=== PATIENT | male | born 1980 | race Caucasian/White ===

== ENCOUNTER 2018-09-20 03:02 | Emergency (ER) | payer OTHER, MEDICAID, SELFPAY ==
[2018-09-20 03:05] VITALS: BP 125/89; PULSE 81; RESP 15; TEMP 36.9; O2SAT 97; BMI 23.1
--- NOTE | 2018-09-20 03:13 | DI.CT.S_ITS ---
PROCEDURE: CT KIDNEY URETER BLADDER (KUB) INDICATIONS: severe Left flank pain with radiation to Left groin TECHNIQUE: Noncontrast 5 mm thick sections acquired from the diaphragms to the symphysis. 5 mm thick coronal and sagittal reformats were then performed. For radiation dose reduction, the following was used: automated exposure control, adjustment of mA and/or kV according to patient size. COMPARISON: None. FINDINGS: Image quality: Excellent. Lung bases: Lung bases are clear. Heart size is normal. Urinary system: Both kidneys are normal in size. No kidney stones. No hydronephrosis or perinephric fat stranding. Both ureters appear non-dilated throughout their expected courses. Mild thickening of the wall of the urinary bladder is present. No bladder calculi are evident. Other solid organs: Liver is normal in size. Gallbladder is not enlarged or adequately evaluated. Pancreas is normal in contours. Spleen is normal in size. No adrenal nodules. Peritoneum and bowel: Unenhanced bowel loops demonstrate normal wall thickness and caliber. No free fluid or air. The appendix is well-visualized and normal. Moderate residual stool seen within the colon. Nodes and vessels: No retroperitoneal or mesenteric adenopathy by size criteria. Aorta and inferior vena cava are normal in caliber. Abdominal wall: No ventral hernias. Pelvis: No free pelvic fluid. No inguinal hernias or adenopathy. The prostate is not enlarged. The appendix is well-visualized and normal. Bones: No suspicious bony lesions. No vertebral body compression fractures. Mild to moderate degenerative changes of the lower lumbar spine and bilateral hips are present. IMPRESSION: 1. No nephroureterolithiasis or hydronephrosis. 2. Urinary bladder wall thickening. Please correlate clinically to exclude cystitis. 3. Probable constipation. 4. Normal appendix. Note: The preliminary [facility] report and the final report are concordant. Dictated by: Laron Delarosa M.D. on 09/20/2018 at 7:30 Approved by: Laron Delarosa M.D. on 09/20/2018 at 7:39
--- NOTE | 2018-09-20 03:13 | DI.US.S_ITS ---
PROCEDURE: US SCROTUM INDICATIONS: LEFT TESTICULAR PAIN TECHNIQUE: Real-time scanning was performed of the scrotum and testicles, with image documentation. Color and pulse Doppler interrogation was performed of both testicles. COMPARISON: None. FINDINGS: Right: Testicle is normal in size at the 4.8 x 2.0 x 3.0 cm, and homogenous in echotexture. Epididymis is normal in overall size and morphology. No hydrocele or varicoceles. Overlying scrotal skin is normal in thickness. Left: Testicle is normal in size at 4.4 x 2.5 x 3.0 cm, and homogeneous in echotexture. Epididymis is normal in overall size and morphology. No hydrocele or varicoceles. Overlying scrotal skin is normal in thickness. Doppler: Color and pulse Doppler demonstrate normal and symmetric arterial flow in both testicles. IMPRESSION: Normal scrotal ultrasound. No testicular mass, hematoma, epididymal orchitis, or evidence of torsion. Note: The preliminary [facility] report and the final report are concordant. Dictated by: Laron Delarosa M.D. on 09/20/2018 at 7:39 Approved by: Laron Delarosa M.D. on 09/20/2018 at 7:41
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
[2018-09-20 04:40] VITALS: PULSE 80; RESP 15; O2SAT 99
== END 2018-09-20 04:40 | disposition home or self-care (01) ==
PROVIDERS: Emergency Provider Emergency Medicine
DX: N50.812 Left testicular pain (principal)
CPT/HCPCS: 74176; 76870; 99282; 99284

== ENCOUNTER 2019-07-16 17:04 | Emergency (ER) | payer OTHER, MEDICAID, SELFPAY ==
[2019-07-16 17:05] VITALS: BP 131/79; PULSE 80; RESP 20; TEMP 36.6; O2SAT 100
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
--- NOTE | 2019-07-16 17:25 | DI.RAD.S_ITS ---
PROCEDURE: XR ANKLE RT MIN 3V INDICATIONS: R lateral malleolus pain x 1 week TECHNIQUE: 3 views of the ankle were acquired. COMPARISON: None. FINDINGS: Bones: No fractures or dislocations. Ankle mortise is normally aligned. No suspicious bony lesions. Soft tissues: Trace tibiotalar joint effusion. Achilles tendon appears normal. Mild swelling at the lateral malleolus. IMPRESSION: No acute osseous abnormality. Dictated by: Tom Rojas M.D. on 07/16/2019 at 17:36 Approved by: Tom Rojas M.D. on 07/16/2019 at 17:37
[2019-07-16 18:19] VITALS: BP 134/74; PULSE 88; RESP 18; O2SAT 96
== END 2019-07-16 18:19 | disposition home or self-care (01) ==
PROVIDERS: Emergency Provider Nurse Practitioner
DX: S93.401A Sprain of unspecified ligament of right ankle, initial encounter (principal); W22.8XXA Striking against or struck by other objects, initial encounter
CPT/HCPCS: 73610; 99283

== ENCOUNTER 2019-10-13 00:10 | Emergency (ER) | payer OTHER, MEDICAID, SELFPAY ==
[2019-10-13 00:12] VITALS: BP 138/68; PULSE 91; RESP 20; TEMP 36.6; O2SAT 98; BMI 23.1
--- NOTE | 2019-10-13 00:17 | ED.DENTAL ---
HPI - Dental/Oral General Chief complaint: Dental/Oral Stated complaint: abscessed tooth left, needs antibiotics Time Seen by Provider: 10/13/19 00:10 Source: patient Mode of arrival: Ambulatory Limitations: no limitations History of Present Illness HPI Narrative: 39M smoker with history of multiple dental problems presents by himself with the chief complaint of dental pain and swelling. He states he has had the occasional pain in his one remaining tooth for about a year and a half but has had swelling for the past day or so. He denies fever, chills, N/V. He took some motrin without much relief. His dentist is at [facility] and he plans to go this week. He denies any injury. MD Complaint: tooth pain Teeth map: 1. Onset (ago): day(s) Duration: constant Severity: moderate Relieving factors: nothing Exacerbating factors: nothing Context: history of dental caries and poor dental care Treatment prior to arrival: none Related Data Previous Rx's Medication Instructions Recorded amoxicillin-pot clavulanate 1 tab PO BID #20 tab 10/13/19 [Augmentin] Allergies Allergy/AdvReac Type Severity Reaction Status Date / Time No Known Drug Allergies Allergy Verified 10/13/19 00:21 Review of Systems Constitutional Constitutional: Denies chills, Denies fatigue, Denies fever(s), Denies frequent falls, Denies lethargy and Denies weakness Eyes Eyes: Denies change in vision, Denies eye discharge, Denies irritation and Denies loss of vision ENT Ears, Nose, Mouth, and Throat: Denies change in voice, Reports dental pain, Denies dizziness, Denies neck pain, Denies sore throat and Denies throat swelling Comments: facial swelling Cardiovascular Cardiovascular: Denies chest pain, Denies irregular heart rhythm, Denies lightheadedness, Denies palpitations, Denies dyspnea, Denies dyspnea on exertion and Denies orthopnea Respiratory Respiratory: Denies cough, Denies dyspnea, Denies dyspnea on exertion and Denies wheezing Gastrointestinal Gastrointestinal: Denies abdominal pain, Denies change in bowel habits, Denies diarrhea, Denies nausea and Denies vomiting Musculoskeletal Musculoskeletal: Denies neck pain and Denies numbness Integumentary/Breasts Skin/Breast: Denies pruritus, Denies erythema, Denies rash and Denies wounds Neurologic Neurologic: Denies behavioral changes, Denies confusion, Denies dizziness, Denies frequent falls, Denies loss of vision, Denies numbness and Denies weakness Psychiatric Psychiatric: Denies anxiety, Denies behavioral changes, Denies confusion, Denies depression, Denies homicidal ideation and Denies suicidal ideation Endocrine Endocrine: Denies fatigue, Denies flushing and Denies palpitations Hematologic/Lymphatic Hematologic/Lymphatic: Denies easy bruising Allergic/Immunologic Allergic/Immunologic: Denies urticaria, Denies throat swelling and Denies wheezing Patient History Medical History No significant medical problems (Acute) Social History Smoking Status: Current every day smoker Smoking Status: Current every day smoker alcohol intake frequency: a few times a month Substance Use Type: marijuana Exam Narrative Exam Narrative: GEN: AOx3 and in mild distress EYES: Pupils are equal, round, and reactive to light and accommodation. Extraoccular muscles are intact bilaterally. There is no subconjunctival hemorrhage or exudate. ENT: facial swelling above remaining tooth (#11), no sign of internal swelling, fluctuance or other suggestion of drainable abscess. Airway patent. No pharyngeal CHEST: Lungs are clear to auscultation bilaterally and free of wheezes, rales, or rhonchi. Heart rate is regular rhythm, there are no murmurs, clicks, rubs, or gallops. There is no chest wall tenderness. ABD: Abdomen is soft and nontender. There is no guarding or rebound. Bowel sounds are normal in all 4 quadrants. There is no mass or organomegaly. EXT: Full painless ROM of all extremities with no loss of sensation or strength. SKIN: Warm, pink, and dry. No erythema or rash Initial Vital Signs Initial Vital Signs: Vital Signs Temperature 97.8 F 10/13/19 00:12 Pulse Rate 91 H 10/13/19 00:12 Respiratory Rate 20 10/13/19 00:12 Blood Pressure 138/68 10/13/19 00:12 Pulse Oximetry 98 10/13/19 00:12 Course Orders Ordered: Discontinued Medications Amoxicillin/Clavulanate Potassium (Augmentin 875-125 Mg) 1 tab PO NOW ONE Stop: 10/13/19 00:25 Last Admin: 10/13/19 00:33 Dose: 1 tab Documented by: [email or web address] Vital Signs Vital signs: Vital Signs - 8 hr 10/13/19 00:12 Temperature 97.8 F Pulse Rate 91 H Respiratory Rate 20 Blood Pressure 138/68 Pulse Oximetry 98 Discharge Plan Departure Patient Disposition: Home Clinical Impression: Dental caries, Toothache Discharge Date/Time: 10/13/19 00:40 Instructions: Tooth Decay, Tooth Abscess Activity Restrictions/Additional Instructions: *You have been diagnosed with [dental pain with minimal facial swelling, consistent with abscess] *What to do: *Take medications as directed *Follow up with your primary care provider in 2-3 days, call for an appointment. Let them know you were seen in the Emergency Department and that we ask that you be seen in follow up *Return to ER if you should have any new, worsening or concerning symptoms Prescriptions: New amoxicillin-pot clavulanate [Augmentin] 875-125 mg tablet 1 tab PO BID Qty: 20 RF: 0 Referrals: Gonzalo Jones DMD [Physician] -
[2019-10-13] MEDS: AMOXICILLIN/CLAV 875/125 MG 1 TAB PO (00:33)
== END 2019-10-13 00:40 | disposition home or self-care (01) ==
PROVIDERS: Emergency Provider Emergency Medicine
DX: K02.9 Dental caries, unspecified (principal); K08.89 Other specified disorders of teeth and supporting structures
CPT/HCPCS: 99283